=== PATIENT | male | born 1950 | race Caucasian/White ===

== ENCOUNTER 2025-01-19 07:28 | Outpatient (CLI) | payer MEDICARE, BC, SELFPAY ==
--- NOTE | 2025-01-19 08:54 | P.ANES_ITS ---
Anesthesia Charges Start Date/Time Anesthesia Start Date: 01/19/25 Anesthesia Start Time: 08:30 Stop Date/Time Anesthesia Stop Date: 01/19/25 Anesthesia Stop Time: 08:51 Summary Extremes of Age - Over 70 or under 1: ROCK WORKER Coding CPT Codes CPT Codes: ANES LWR INTST NDSC NOS - 92452 ([id number]) P3 - PATIENT W/SEVERE SYS DISEASE, QK - MERCHANDISE EXAMINER 2-4 CNCRNT ANES PROC, QX - ROCK WORKER SVC W/ MD MED DIRECTION Additional Codes: Summary - Extremes of Age - Over 70 or under 1: ROCK WORKER ([id number])
--- NOTE | 2025-01-19 08:54 | W.ANESCHARGE ---
Anesthesia Charges Start Date/Time Anesthesia Start Date: 01/19/25 Anesthesia Start Time: 08:30 Stop Date/Time Anesthesia Stop Date: 01/19/25 Anesthesia Stop Time: 08:51 Summary Extremes of Age - Over 70 or under 1: SURVEILLANCE SPECIALIST Coding CPT Codes CPT Codes: ANES LWR INTST NDSC NOS - [id number] ([id number]) P3 - PATIENT W/SEVERE SYS DISEASE, QK - SPORT INTERNSHIP 2-4 CNCRNT ANES PROC, QX - SURVEILLANCE SPECIALIST SVC W/ MD MED DIRECTION Additional Codes: Summary - Extremes of Age - Over 70 or under 1: SURVEILLANCE SPECIALIST ([id number])
--- NOTE | 2025-01-19 10:09 | P.ANES_ITS ---
Anesthesia Charges Start Date/Time Anesthesia Start Date: 01/19/25 Anesthesia Start Time: 08:30 Stop Date/Time Anesthesia Stop Date: 01/19/25 Anesthesia Stop Time: 08:51 Summary Extremes of Age - Over 70 or under 1: MDA Coding CPT Codes CPT Codes: ANES LWR INTST NDSC NOS - [id number] ([id number]) QK - WIND SCIENCE AND PLANNING 2-4 CNCRNT ANES PROC, QX - PLANT MAINTENANCE SUPERVISOR SVC W/ MD MED DIRECTION, P3 - PATIENT W/SEVERE SYS DISEASE Additional Codes: Summary - Extremes of Age - Over 70 or under 1: MDA ([id number])
== END 2025-01-19 07:29 | disposition home or self-care (01) ==
LOC: OP CLINIC 07:34
PROVIDERS: Visit Provider Internal Medicine Gastroenterology
DX: Z12.11 Encounter for screening for malignant neoplasm of colon (principal); D12.3 Benign neoplasm of transverse colon; K57.30 Diverticulosis of large intestine without perforation or abscess without bleeding; Z86.0101 Personal history of adenomatous and serrated colon polyps
CPT/HCPCS: 00811; 00812; 45385; 99100; J2704